=== PATIENT | female | born 1970 | race Two or more races ===

== ENCOUNTER 2017-07-15 19:17 | Emergency (ER) | payer OTHER ==
[~2017-07-15] VITALS: Ht 160 cm; Wt 81.6 kg
[2017-07-15 19:26] VITALS: BP 150/93
== END 2017-07-15 20:50 | disposition home or self-care (01) ==
LOC: ER 19:18
DX: J02.9 Acute pharyngitis, unspecified (principal); J04.0 Acute laryngitis
CPT/HCPCS: A4606; Z7610